=== PATIENT | male | born 1980 | race Caucasian/White ===

== ENCOUNTER 2021-12-29 14:33 | Emergency (ER) | payer OTHER, SELFPAY ==
--- NOTE | 2021-12-29 14:35 | ED.UPPEXIN ---
HPI - Extremity Injury (Upper) General Chief Complaint: Extremity Injury, Upper Stated Complaint: Shoulder Pain/Both Time Seen by Provider: 12/29/21 14:35 Source: patient and RN notes reviewed History of Present Illness HPI narrative: Patient is a 41-year-old male who presents the urgent care with complaints of bilateral shoulder pain for several years. Patient states that the left shoulder has worsened recently in the last few months. Patient states that he lifts heavy at work and was nearly in tears over the pain . Patient states after rest his pain does subside. Patient denies of any numbness or tingling to the hands. Currently denies of any right shoulder pain. Patient has not followed up with an orthopedic or primary care doctor in some time. Denies of any chest pain. Denies any known injury to the shoulders or upper back. No other acute complaints. No acute distress noted. Patient read plan of care. Some parts of this dictation were generated by voice recognition software and may contain typographical and/or grammatical inaccuracies. Related Data Allergies Allergy/AdvReac Type Severity Reaction Status Date / Time No Known Allergies Allergy Verified 12/29/21 14:53 Review of Systems Review of Systems: CONSTITUTIONAL: Denies fever, chills, or sweats. EYES: Denies visual changes, redness, or discharge. ENT: Denies rhinorrhea, congestion, sore throat, or otalgia. CARDIOVASCULAR: Denies chest pain, palpitations, or edema. RESPIRATORY: Denies cough or dyspnea. GASTROINTESTINAL: Denies abdominal pain, nausea, vomiting, or diarrhea. GENITOURINARY: Denies dysuria or hematuria. SKIN: Denies rash or itching. MUSCULOSKELETAL: Reports bilateral shoulder pain more so to the left NEUROLOGIC: Denies headache, numbness, or weakness. All other systems reviewed are negative, except as documented in HPI. PMFSH Comments At the time of my signature, I reviewed and agree with the nursing past medical, surgical, social, and family history. There is no relevant family history pertinent to the patient complaint. Exam Narrative: GENERAL: This is a well-nourished, well-developed patient, in no apparent distress. HEAD: normocephalic, atraumatic. EYES: PERRL. Sclera clear/white. Vision is grossly intact. EARS: External ears normal NOSE: External nose normal with no obvious nasal discharge, nares without redness, no rhinorrhea. THROAT: Mucous membranes moist NECK: Neck supple CARDIOVASCULAR: Regular rate and rhythm without murmurs, gallops, or rubs. RESPIRATORY: Clear to auscultation. Breath sounds equal bilaterally. No wheezes, rales, or rhonchi. SKIN: warm, intact with no suspicious lesions or rash, good texture and turgor. NEURO: awake, alert, and oriented to person, place and time. There were no obvious focal neurologic abnormalities. EXTREMITIES: Range of motion bilateral upper extremities within normal limits. No joint space tenderness to bilateral shoulders. Positive strong bilateral radial pulses with capillary refill less than 2 seconds. Course Course Level of Care: Express Care Visit Vital Signs Vital signs: Vital Signs Temperature 98.2 F 12/29/21 14:42 Pulse Rate 77 12/29/21 14:42 Respiratory Rate 16 12/29/21 14:42 Blood Pressure 142/91 H 12/29/21 14:42 Pulse Oximetry 99 12/29/21 14:42 Temperature 98.2 F 12/29/21 14:42 Pulse Rate 77 12/29/21 14:42 Respiratory Rate 16 12/29/21 14:42 Blood Pressure 142/91 H 12/29/21 14:42 Pulse Oximetry 99 12/29/21 14:42 Reviewed-patient is informed that they may have pre-hypertension or hypertension based on a blood pressure reading in the department. I recommend the patient call the primary care provider listed on their discharge instructions or a physician of their choice this week to arrange follow-up for further evaluation of possible pre-hypertension or hypertension. MDM - Extremity Injury (Upper) MDM Narrative Medical decision making narrative: Advised
[2021-12-29 14:42] VITALS: BP 142/91; PULSE 77; RESP 16; TEMP 36.8; O2SAT 99
== END 2021-12-29 15:20 | disposition home or self-care (01) ==
PROVIDERS: Emergency Provider Nurse Practitioner Family
DX: M77.8 Other enthesopathies, not elsewhere classified (principal)
CPT/HCPCS: 99213; G0463

== ENCOUNTER 2022-04-10 08:01 | Emergency (ER) | payer OTHER, SELFPAY ==
[2022-04-10 08:09] VITALS: BP 169/105; PULSE 59; RESP 24; TEMP 36.2; O2SAT 100
--- NOTE | 2022-04-10 08:14 | ED.DENTAL ---
HPI - Dental/Oral General Chief complaint: Dental/Oral Stated complaint: tooth pain Time Seen by Provider: 04/10/22 08:15 History of Present Illness HPI Narrative: 42-year-old male presented for complaint of left upper dental pain for about 2 weeks. He woke this morning with severe pain. He does not have a dentist. He has multiple dental caries and broken teeth. Taking ibuprofen and Tylenol for pain. Denies gum swelling or drainage. Denies nausea, vomiting, fevers or chills. Related Data Home Medications Medication Instructions Recorded Confirmed baclofen 20 mg tablet 1 tablet PO BID 04/10/22 04/10/22 hydroxyzine pamoate 50 mg capsule 1 cap PO HS 04/10/22 04/10/22 sertraline 100 mg tablet 1 tablet PO DAILY 04/10/22 04/10/22 Allergies Allergy/AdvReac Type Severity Reaction Status Date / Time No Known Allergies Allergy Verified 04/10/22 08:17 Review of Systems Review of Systems: CONSTITUTIONAL: Denies body aches, fever, chills ENT: Denies rhinorrhea, congestion, sore throat, or otalgia. Reports dental pain CARDIOVASCULAR: Denies chest pain, palpitations RESPIRATORY: Denies cough or dyspnea. SKIN: Denies rash, itching, or wounds. MUSCULOSKELETAL: Denies myalgia. NEUROLOGIC: Denies headache, numbness, tingling, or weakness. Exam Narrative: GENERAL: Appears in pain HEAD: Normocephalic, atraumatic. EYES: EOMI. No redness or drainage. Conjunctivae normal. ENT: Mucous membranes pink and moist. No rhinorrhea. TMs normal bilaterally. Throat normal. Uvula midline. Multiple dental caries, broken tooth, left upper dental pain at site of #15 broken tooth, black discoloration no gum swelling or active drainage NECK: Normal AROM. Supple. No lymphadenopathy. CHEST: No respiratory distress. Clear to auscultation. HEART: Regular rate and rhythm. No murmur appreciated. Normal peripheral pulses. NEURO: No focal deficits. Alert and oriented x3. Gait steady. PSYCH: Normal affect. No signs of depression or anxiety. Course Course Level of Care: Express Care Visit Vital Signs Vital signs: Vital Signs Temperature 97.2 F L 04/10/22 08:09 Pulse Rate 59 L 04/10/22 08:09 Respiratory Rate 24 H 04/10/22 08:09 Blood Pressure 169/105 H 04/10/22 08:09 Pulse Oximetry 100 04/10/22 08:09 Oxygen Delivery Room Air 04/10/22 08:09 Temperature 97.2 F L 04/10/22 08:09 Pulse Rate 59 L 04/10/22 08:09 Respiratory Rate 24 H 04/10/22 08:09 Blood Pressure 169/105 H 04/10/22 08:09 Pulse Oximetry 100 04/10/22 08:09 Oxygen Delivery Room Air 04/10/22 08:09 MDM - Dental/Oral MDM Narrative Medical decision making narrative: Patients pain and complaint coupled with physical findings are consistent with dentalgia. There are no focal signs of space occupying lesions that are compromising to the airway. No uvular deviation or soft palate edema. Patient is non-toxic appearing. Patient is without trismus or drooling and able to swallow secretions. Patient is felt appropriate for discharge home with dental follow up. Differential Diagnosis Differential diagnosis: Likely gingival abscess, dental caries, toothache, dental abscess and fracture of tooth Discharge Plan Discharge Clinical Impression: Dental caries Patient Disposition: Home, Self-Care Condition: Stable Instructions: Antibiotic Form, Toothache (ED) Additional Instructions: Take antibiotic as directed May apply heat or ice to the face Gentle brushing and flossing. Rinse mouth with warm salt water at least 2 times a day. Alternate Tylenol and ibuprofen as needed for pain Follow-up with the dentist as soon as possible--see the list provided Prescriptions: New ibuprofen 800 mg tablet 800 mg PO TID PRN (Reason: pain) Qty: 15 0RF penicillin V potassium 500 mg tablet 500 mg PO Q12H 10 Days Qty: 20 0RF lidocaine HCl [Lidocaine Viscous] 2 % solution 1 applic mucous membrane TID PRN (Reason: pain) Qty: 100 0RF
== END 2022-04-10 08:35 | disposition home or self-care (01) ==
PROVIDERS: Emergency Provider Nurse Practitioner Family
DX: K02.9 Dental caries, unspecified (principal)
CPT/HCPCS: 99213; G0463

== ENCOUNTER 2022-05-05 17:22 | Emergency (ER) | payer OTHER, SELFPAY ==
[2022-05-05 17:28] VITALS: BP 157/97; PULSE 67; RESP 14; TEMP 36.4; O2SAT 98
--- NOTE | 2022-05-05 18:24 | ED.DENTAL ---
HPI - Dental/Oral General Chief complaint: Dental/Oral Stated complaint: tooth pain Time Seen by Provider: 05/05/22 18:20 Source: patient, RN notes reviewed and old records reviewed Mode of arrival: ambulatory Limitations: no limitations History of Present Illness HPI Narrative: 42year old male who [facility] with complaints of upper right molar tooth pain since yesterday after tooth broke off. Patient has numerous broken, missing and obvious caries to teeth. patient reports that he has been taking Ibuprofen but not helping especially the past 3-4 hours, rates his pain a 10/10. He also reports some pain extending to the right side of his face into his ear. Patient was treated for dentalgia on the 06 of April also with antibiotic. MD Complaint: tooth pain and tooth injury Related Data Home Medications Medication Instructions Recorded Confirmed baclofen 20 mg tablet 1 tablet PO BID 04/10/22 05/05/22 hydroxyzine pamoate 50 mg capsule 1 cap PO HS 04/10/22 05/05/22 sertraline 100 mg tablet 1 tablet PO DAILY 04/10/22 05/05/22 Allergies Allergy/AdvReac Type Severity Reaction Status Date / Time No Known Allergies Allergy Verified 05/05/22 17:50 Review of Systems Review of Systems: CONSTITUTIONAL: Denies fever, chills, or sweats. EYES: Denies visual changes, redness, or discharge. ENT: Denies rhinorrhea, congestion, sore throat, or otalgia.positive for dental pain upper right molar broke off. CARDIOVASCULAR: Denies chest pain, palpitations, or edema. RESPIRATORY: Denies cough or dyspnea. GASTROINTESTINAL: Denies abdominal pain, nausea, vomiting, or diarrhea. GENITOURINARY: Denies dysuria or hematuria. SKIN: Denies rash or itching. MUSCULOSKELETAL: Denies back pain, joint pain, or myalgia. NEUROLOGIC: Denies headache, numbness, or weakness. PSYCHIATRIC: Positive for anxiety or depression. [facility] Past Medical History Medical History (Updated 05/08/22 @ 21:37 by Lindy Mar NP) Anxiety Social History Social History (Updated 05/08/22 @ 21:36 by Lindy Mar NP) Smoking packs per day: 1 Smoking cigarettes per day: 20.0 Years smoked: 25 Smoking pack-years: 25.00 Smoking status: Current every day smoker Gender identity (if verbalized by the patient): Male Comments At time of signature, agree with nursing past medical, surgical, social and family history. There is no relevant family history pertinent to the presenting complaint Exam Narrative: GENERAL: Well-appearing, well-nourished, and in no acute distress. HEAD: Normocephalic, atraumatic. EYES: PERRLA and EOMI. ENT: Nares clear, no rhinorrhea or epistaxis. Mucous membranes moist.TM's normal with good light reflex, throat pink with no lesions or exudates or tonsil swelling, broken tooth right upper molar with stated pain, numerous dental caries, broken and missing teeth, no drainage or redness of gum at site of complaint, no Micah angina noted or facial swelling NECK: Supple. no lymphadenopathy CHEST: Clear to auscultation. No respiratory distress. SAO2 98% on room air. HEART: Regular rate and rhythm. No murmur heard. Normal peripheral pulses. ABDOMEN: Soft, nontender, nondistended, normal active bowel sounds. EXTREMITIES: Normal range of motion. No edema. SKIN: Warm, dry, no rash. NEURO: No focal deficits. Alert and oriented x3.anxious Course Course Level of Care: Express Care Visit Vital Signs Vital signs: Vital Signs Temperature 36.4 C 05/05/22 17:28 Pulse Rate 67 05/05/22 17:28 Respiratory Rate 14 05/05/22 17:28 Blood Pressure 157/97 H 05/05/22 17:28 Pulse Oximetry 98 05/05/22 17:28 Oxygen Delivery Room Air 05/05/22 17:28 Temperature 36.4 C 05/05/22 17:28 Pulse Rate 67 05/05/22 17:28 Respiratory Rate 14 05/05/22 17:28 Blood Pressure 157/97 H 05/05/22 17:28 Pulse Oximetry 98 05/05/22 17:28 Oxygen Delivery Room Air 05/05/22 17:28 MDM - Dental/Oral Differential Diagnosis D
== END 2022-05-05 18:35 | disposition home or self-care (01) ==
PROVIDERS: Emergency Provider Registered Nurse
DX: K04.7 Periapical abscess without sinus (principal); S02.5XXA Fracture of tooth (traumatic), initial encounter for closed fracture; X58.XXXA Exposure to other specified factors, initial encounter; F17.210 Nicotine dependence, cigarettes, uncomplicated; F41.9 Anxiety disorder, unspecified
CPT/HCPCS: 99213; G0463

== ENCOUNTER 2023-05-12 11:40 | Emergency (ER) | payer OTHER, SELFPAY ==
[2023-05-12 11:45] VITALS: BP 148/95; PULSE 83; RESP 16; TEMP 36.1; O2SAT 98
--- NOTE | 2023-05-12 11:45 | ED.DENTAL ---
HPI - Dental/Oral General Chief complaint: Dental/Oral Stated complaint: tooth pain Time Seen by Provider: 05/12/23 11:45 Source: patient and RN notes reviewed History of Present Illness HPI Narrative: Patient is a 43-year-old male who presents to urgent care with complaints of left upper dental pain and facial swelling. Patient states that the pain started approximately 1 week ago and the facial swelling started approximately 3 days ago. Patient states it has been years since he has seen a dentist. Patient denies any fever, nausea, vomiting. Patient has not taken anything [id number] for pain. No other acute complaints. No acute distress noted. Patient aware of the plan of care. Some parts of this dictation were generated by voice recognition software and may contain typographical and/or grammatical inaccuracies. Related Data Allergies Allergy/AdvReac Type Severity Reaction Status Date / Time No Known Allergies Allergy Verified 04/07/23 08:25 Review of Systems Review of Systems: CONSTITUTIONAL: Denies fever, chills, or sweats. EYES: Denies visual changes, redness, or discharge. ENT: Denies rhinorrhea, congestion, sore throat, or otalgia. Reports of left upper dental pain and facial swelling CARDIOVASCULAR: Denies chest pain, palpitations, or edema. RESPIRATORY: Denies cough or dyspnea. GASTROINTESTINAL: Denies abdominal pain, nausea, vomiting, or diarrhea. GENITOURINARY: Denies dysuria or hematuria. SKIN: Denies rash or itching. MUSCULOSKELETAL: Denies back pain, joint pain, or myalgia. NEUROLOGIC: Denies headache, numbness, or weakness. All other systems reviewed are negative, except as documented in HPI. [facility] Past Medical History Medical History (Updated 05/12/23 @ 11:58 by LEE Donovan) Anxiety Social History Social History (System 04/07/23 @ 08:25 by Horacio Yoder) Smoking packs per day: 1 Smoking cigarettes per day: 20.0 Years smoked: 25 Smoking pack-years: 25.00 Smoking status: Current every day smoker Gender identity (if verbalized by the patient): Male Comments At the time of my signature, I reviewed and agree with the nursing past medical, surgical, social, and family history. There is no relevant family history pertinent to the patient complaint. Exam Narrative: GENERAL: This is a well-nourished, well-developed patient, in no apparent distress. HEAD: normocephalic, atraumatic. EYES: PERRL. Sclera clear/white. Vision is grossly intact. EARS: External ears normal NOSE: External nose normal with no obvious nasal discharge, nares without redness, no rhinorrhea. THROAT: Mucous membranes moist, posterior pharynx clear. DENTAL: Mild left upper facial swelling with tenderness. Multiple carious lesion to the left upper quadrant with avulsed dentition an abscess to the 1st and 2nd upper left molars NECK: Neck supple SKIN: warm, intact with no suspicious lesions or rash, good texture and turgor. NEURO: awake, alert, and oriented to person, place and time. There were no obvious focal neurologic abnormalities. EXTREMITIES: No clubbing, cyanosis, or edema. Course Course Level of Care: Express Care Visit Vital Signs Vital signs: Vital Signs Temperature 97 F L 05/12/23 11:45 Pulse Rate 83 05/12/23 11:45 Respiratory Rate 16 05/12/23 11:45 Blood Pressure 148/95 H 05/12/23 11:45 Pulse Oximetry 98 05/12/23 11:45 Oxygen Delivery Room Air 05/12/23 11:45 Temperature 97 F L 05/12/23 11:45 Pulse Rate 83 05/12/23 11:45 Respiratory Rate 16 05/12/23 11:45 Blood Pressure 148/95 H 05/12/23 11:45 Pulse Oximetry 98 05/12/23 11:45 Oxygen Delivery Room Air 05/12/23 11:45 Reviewed- Patient is informed that they may have pre-hypertension or hypertension based on a blood pressure reading in the department. I recommend the patient call the primary care provider listed on their discharge instructions or a physician of their choice this week to ar
== END 2023-05-12 12:10 | disposition home or self-care (01) ==
PROVIDERS: Emergency Provider Nurse Practitioner Family
DX: K04.7 Periapical abscess without sinus (principal); F17.210 Nicotine dependence, cigarettes, uncomplicated
CPT/HCPCS: 99213; G0463

== ENCOUNTER 2023-07-08 08:38 | Emergency (ER) | payer OTHER, SELFPAY ==
[2023-07-08 08:43] VITALS: BP 138/119; PULSE 77; RESP 16; TEMP 36.4; O2SAT 99
--- NOTE | 2023-07-08 08:45 | ED.DENTAL ---
HPI - Dental/Oral General Chief complaint: Dental/Oral Stated complaint: Toothache Source: patient and RN notes reviewed History of Present Illness HPI Narrative: 43 yo M presents to urgent care with complaints of left upper dental pain x 3-4 years. Pt has a hx of bad teeth and was placed on Augmentin in May. Pt states he missed his dental appt at [facility]. Denies any fevers, chills, N/V/D, chest pain, or SOB. Related Data Allergies Allergy/AdvReac Type Severity Reaction Status Date / Time No Known Allergies Allergy Verified 04/07/23 08:25 Review of Systems Review of Systems: CONSTITUTIONAL: Denies fever, chills, or sweats. EYES: Denies visual changes, redness, or discharge. ENT: Denies otalgia and sore throat. Left upper dental pain. CARDIOVASCULAR: Denies chest pain, palpitations, or edema. RESPIRATORY: Denies cough or dyspnea. GASTROINTESTINAL: Denies abdominal pain, nausea, vomiting, or diarrhea. GENITOURINARY: Denies dysuria or hematuria. SKIN: Denies rash or itching. MUSCULOSKELETAL: Denies back pain, joint pain, or myalgia. NEUROLOGIC: Denies headache, numbness, or weakness. Pertinent positives per HPI. [facility], [facility] Past Medical History Medical History (Updated 07/08/23 @ 08:53 by Kalyn Mcleod APRN) Anxiety Social History Social History (System 04/07/23 @ 08:25 by Horacio Yoder) Smoking packs per day: 1 Smoking cigarettes per day: 20.0 Years smoked: 25 Smoking pack-years: 25.00 Smoking status: Current every day smoker Gender identity (if verbalized by the patient): Male Comments At the time of my signature, I reviewed and agree with the nursing past medical, surgical, social, and family history. There is no relevant family history pertinent to the patient complaint. Exam Narrative: GENERAL: This is a well-nourished, well-developed patient, in no apparent distress. HEAD: normocephalic, atraumatic. EYES: Sclera clear/white. Vision is grossly intact. EARS: External ears normal, auditory canals clear and without drainage, TMs normal without perforation. Hearing grossly intact. NOSE: External nose normal with no obvious nasal discharge, nares without redness, no rhinorrhea. THROAT: Mucous membranes moist, posterior pharynx clear. MOUTH: dental abscess noted adjacent to tooth #2. NECK: Neck supple, non-tender without lymphadenopathy, masses or thyromegaly. CARDIOVASCULAR: Regular rate and rhythm without murmurs, gallops, or rubs. RESPIRATORY: Clear to auscultation. Breath sounds equal bilaterally. No wheezes, rales, or rhonchi. SKIN: warm, intact with no suspicious lesions or rash, good texture and turgor. NEURO: awake, alert, and oriented to person, place and time. There were no obvious focal neurologic abnormalities. Course Course Level of Care: Express Care Visit Vital Signs Vital signs: Vital Signs Temperature 97.6 F 07/08/23 08:43 Pulse Rate 77 07/08/23 08:43 Respiratory Rate 16 07/08/23 08:43 Blood Pressure 138/119 H 07/08/23 08:43 Pulse Oximetry 99 07/08/23 08:43 Oxygen Delivery Room Air 07/08/23 08:43 Temperature 97.6 F 07/08/23 08:47 Pulse Rate 77 07/08/23 08:47 Respiratory Rate 16 07/08/23 08:47 Blood Pressure 138/119 H 07/08/23 08:47 Pulse Oximetry 99 07/08/23 08:47 Oxygen Delivery Room Air 07/08/23 08:47 reviewed MDM - Dental/Oral MDM Narrative Medical decision making narrative: Take antibiotic until it's gone. Brushing teeth at least twice daily with gentle flossing. Avoid temperature extremes when you eat. Salt gargle to rinse your mouth after every meal You may apply ice to the face to reduce pain/swelling. For pain, you may take: Tylenol 650-1000mg by mouth every 4-6 hours. Do not exceed 4000mg in 24 hours. Advil (Ibuprofen) 600 mg by mouth every 6 hours. Do not exceed 2400mg in 24 hours. Also, recommend regular dental check up one-two times a year to prevent tooth decay and other periodo
[2023-07-08 08:47] VITALS: BP 138/119; PULSE 77; RESP 16; TEMP 36.4; O2SAT 99
== END 2023-07-08 08:58 | disposition home or self-care (01) ==
PROVIDERS: Emergency Provider Nurse Practitioner Family
DX: K04.7 Periapical abscess without sinus (principal); F17.210 Nicotine dependence, cigarettes, uncomplicated
CPT/HCPCS: 99213; G0463

== ENCOUNTER 2024-01-17 14:49 | Emergency (ER) | payer OTHER, SELFPAY ==
[2024-01-17 14:56] VITALS: BP 143/112; PULSE 74; RESP 20; TEMP 36.4; O2SAT 99
--- NOTE | 2024-01-17 15:01 | ED.DENTAL ---
HPI - Dental/Oral General Chief complaint: Dental/Oral Stated complaint: tooth pain Time Seen by Provider: 01/17/24 15:01 Source: patient, RN notes reviewed and old records reviewed Mode of arrival: ambulatory Limitations: no limitations History of Present Illness HPI Narrative: 43 year old male presents to [facility] care with complaints of dental pain to the right top most posterior molar teeth which are decayed and broken, several other teeth in area are broken off to gums. Patient reports that he had antibiotic of Augmentin on 01/08/2024 #14 tabs and also Ibuprofen 800 mg 20 tabs prescribed at that time also. Patient has redness and swelling of gums around right upper most posterior molars, no facial swelling noted. MD Complaint: tooth pain Location: Tooth # (2.3) Onset (ago): week(s) (increased for 2 weeks) Severity scale (1-10): 10 Treatment prior to arrival: other (ibuprofen) Related Data Home Medications Medication Instructions Recorded Confirmed amitriptyline 25 mg tablet 25 mg PO DAILY 01/17/24 01/17/24 bupropion HCl 150 mg 24 hr tablet, 150 mg PO DAILY 01/17/24 01/17/24 extended release clonazepam 0.5 mg tablet 0.5 mg PO PRN PRN Anxiety 01/17/24 01/17/24 fluoxetine 20 mg capsule 20 mg PO DAILY 01/17/24 01/17/24 quetiapine 25 mg tablet 25 mg PO DAILY 01/17/24 01/17/24 Allergies Allergy/AdvReac Type Severity Reaction Status Date / Time No Known Allergies Allergy Verified 04/07/23 08:25 Review of Systems Review of Systems: CONSTITUTIONAL: Denies fever, chills, or sweats. ENT: Denies rhinorrhea, congestion, sore throat, or otalgia. Reports dental pain with redness and swelling gums around #2 and 3 teeth right upper region with teeth with obvious caries and broken CARDIOVASCULAR: Denies chest pain, palpitations, or edema. RESPIRATORY: Denies cough or dyspnea. SKIN: Denies rash or itching. MUSCULOSKELETAL: Denies myalgia. NEUROLOGIC: Denies headache All systems reviewed & are unremarkable except as noted in HPI and below PMFSH Past Medical History Medical History Anxiety Social History Social History Smoking packs per day: 1 Smoking cigarettes per day: 20.0 Years smoked: 25 Smoking pack-years: 25.00 Smoking status: Current every day smoker Tobacco type: cigarettes and e-cigarettes/vaping Gender identity (if verbalized by the patient): Male Comments At time of signature, agree with nursing past medical, surgical, social and family history. There is no relevant family history pertinent to the presenting complaint Exam Narrative: GENERAL: Well-appearing, well-nourished, and in no acute distress. HEAD: Normocephalic, atraumatic. EYES: PERRLA and EOMI. ENT: Nares clear, no rhinorrhea or epistaxis. Mucous membranes moist. Missing teeth, broken teeth, caries noted in mouth with redness and swelling of gums arou #2 and #3 tooth, no Micah angina noted or any trismus. NECK: Supple. no lymphadenopathy CHEST: Clear to auscultation. No respiratory distress.SAO2 99% on room air HEART: Regular rate and rhythm. No murmur heard. Normal peripheral pulses. SKIN: Warm, dry, no rash. NEURO: No focal deficits. Alert and oriented x3. Course Course Emergency Course: Patient is aware of diagnosis, understands and agrees to treatment plan. Anticipatory guidance given. Patient agrees to follow-up as directed and is aware of reasons to seek care at the emergency department. Portions of this record may have been created with voice recognition software Level of Care: Express Care Visit Vital Signs Vital signs: Vital Signs Temperature 36.4 C L 01/17/24 14:56 Pulse Rate 74 01/17/24 14:56 Respiratory Rate 20 01/17/24 14:56 Blood Pressure 143/112 H 01/17/24 14:56 Pulse Oximetry 99 01/17/24 14:56 Oxygen Delivery Room Air 01/17/24 14:56 Temperature 36.4 C L 01/17/24 15
[2024-01-17 15:05] VITALS: BP 143/112; PULSE 74; RESP 20; TEMP 36.4; O2SAT 99
== END 2024-01-17 15:16 | disposition home or self-care (01) ==
PROVIDERS: Emergency Provider Registered Nurse; PCP Hospitalist
DX: K04.7 Periapical abscess without sinus (principal); F17.210 Nicotine dependence, cigarettes, uncomplicated; F17.290 Nicotine dependence, other tobacco product, uncomplicated; F41.9 Anxiety disorder, unspecified
CPT/HCPCS: 99213; G0463